=== PATIENT | male | born 1975 | race Hispanic/Latino ===

== ENCOUNTER 2017-03-09 08:51 | Outpatient (CLI) | payer OTHER ==
--- NOTE | 2017-03-09 16:48 | XRay Report ---
XRAY BILATERAL HIPS AND AP PELVIS THREE VIEWS: 03/09/17 CLINICAL: Neck pain. FINDINGS: Right: No fracture or dislocation. Moderate osteoarthritis. Normal soft tissues. Left: No fracture or dislocation. Mild osteoarthritis.Normal soft tissues. The pelvic bones are intact.Normal SI joints. IMPRESSION: Bilateral hip osteoarthritis, right worse than left.
--- NOTE | 2017-03-09 16:52 | XRay Report ---
XRAY LUMBAR SPINE THREE VIEWS: 03/09/17 08:51:00 CLINICAL: Back pain. FINDINGS: Straightening of the L-spine and loss of the normal lumbar lordosis. Moderate anterior wedging of the T12 vertebral body and lesser degrees of anterior wedging of T11 and L1 vertebral bodies. No fracture lines are identified. Decreased height of the L5 vertebral body with no fracture. L5-S1 degenerative disease with narrowing of the disc space and large anterior osteophytes. Right L5-S1 facet joint sclerosis. Normal soft tissues. IMPRESSION: Age-indeterminate but probably remote mild anterior wedge compression fractures of T11, T12 and L1. L5-S1 degenerative disc disease and facet joint disease.
== END 2017-03-09 08:52 | disposition home or self-care (01) ==
LOC: SPVIMAG 08:51
DX: M48.55XA Collapsed vertebra, not elsewhere classified, thoracolumbar region, initial encounter for fracture (principal); M16.0 Bilateral primary osteoarthritis of hip; M51.37 Other intervertebral disc degeneration, lumbosacral region
CPT/HCPCS: 72100; 73521

== ENCOUNTER 2018-04-05 12:34 | Outpatient (CLI) | payer OTHER ==
--- NOTE | 2018-04-05 13:07 | XRay Report ---
ABDOMEN, 2 views: History: Persistent abdominal pain. There is no evidence of free air beneath the diaphragms. The gas pattern within the abdomen is unremarkable. There is no evidence of bowel dilatation, significant air-fluid levels, or pathologic calcifications. There is moderate stool in the ascending colon. Organ shadows are unremarkable. IMPRESSION: Unremarkable abdomen.
== END 2018-04-05 12:35 | disposition home or self-care (01) ==
LOC: XRAY 12:34
PROVIDERS: ATTEND Family Medicine
DX: R10.9 Unspecified abdominal pain (principal); Z91.018 Allergy to other foods
CPT/HCPCS: 74019

== ENCOUNTER 2019-01-14 12:47 | Emergency (ER) | payer OTHER ==
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
[2019-01-14] MEDS ORDERED: KETOROLAC 30 MG/1 ML INJ IM ONE (15:13)
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
[2019-01-14 16:47] VITALS: BP 149/98
== END 2019-01-14 17:17 | disposition home or self-care (01) ==
LOC: ED 12:47
DX: S32.059A Unspecified fracture of fifth lumbar vertebra, initial encounter for closed fracture (principal); S16.1XXA Strain of muscle, fascia and tendon at neck level, initial encounter; V49.49XA Driver injured in collision with other motor vehicles in traffic accident, initial encounter; Y93.89 Activity, other specified; Y92.89 Other specified places as the place of occurrence of the external cause; Y99.8 Other external cause status
CPT/HCPCS: 72040; 72100; 96372; 99283; J1885